=== PATIENT | male | born 1990 | race Hispanic/Latino ===

== ENCOUNTER 2017-06-06 17:15 | Emergency (ER) | payer MEDICAID, OTHER ==
[2017-06-06 17:58] VITALS: BP 104/64; PULSE 95; RESP 16; TEMP 99.2; O2SAT 98
--- NOTE | 2017-06-06 21:20 | ED PDOC ---
HPI: General Adult Time Seen by Provider: 06/06/17 18:46 Chief Complaint (Nursing): Flu-like Symptoms Chief Complaint (Provider): Flu-Like Symptoms History Per: Patient History/Exam Limitations: no limitations Onset/Duration Of Symptoms: Hrs (since this morning) Current Symptoms Are (Timing): Still Present Additional Complaint(s): 27 year old male with no medical history presents to ED with complaints of flu- like symptoms since this morning: (+) sore throat, tactile fever, and body aches. (-) cough, travel, rash, otalgia, vomiting, diarrhea, chest pain, or abdominal pain. (+) sick contact with niece. Patient notes he took 500mg Advil x5 hours [employer] [employer]. PCP: Does not remember Past Medical History Reviewed: Historical Data, Nursing Documentation, Vital Signs Vital Signs: Last Vital Signs Temp 99.2 F 06/06/17 17:53 Pulse 95 H 06/06/17 17:53 Resp 16 06/06/17 17:53 BP 104/64 06/06/17 17:53 Pulse Ox 98 06/06/17 21:30 - Medical History PMH: No Chronic Diseases, Sexually Transmitted Disease (Herpes Simplex 2) - Surgical History Surgical History: No Surg Hx - Family History Family History: States: Unknown Family Hx - Living Arrangements Living Arrangements: With Family - Social History Current smoker - smoking cessation education provided: Yes (6 cigarettes a day) Ex-Smoker (has not smoked in the last 12 months): No Drugs: Denies - Home Medications Home Medications: Ambulatory Orders Medication Instructions Recorded Sulfamethoxazole/Trimethoprim 1 tab PO BID #14 tab 11/13/16 [Bactrim DS 800 mg-160 mg] Amoxicillin 875 mg PO BID #14 tablet 06/06/17 Ibuprofen [Motrin Tab] 600 mg PO QID PRN #20 tab 06/06/17 - Allergies Allergies/Adverse Reactions: Allergies Allergy/AdvReac Type Severity Reaction Status Date / Time No Known Allergies Allergy Verified 06/06/17 17:53 Review of Systems ROS Statement: Except As Marked, All Systems Reviewed And Found Negative Constitutional: Positive for: Fever (tactile), Other ((+) body aches) ENT: Positive for: Throat Pain Cardiovascular: Negative for: Chest Pain Respiratory: Negative for: Cough Gastrointestinal: Negative for: Vomiting, Abdominal Pain, Diarrhea Physical Exam - Reviewed Nursing Documentation Reviewed: Yes Vital Signs Reviewed: Yes - Physical Exam Appears: Positive for: Well, Non-toxic, No Acute Distress Head Exam: Positive for: NORMOCEPHALIC Skin: Positive for: Normal Color, Warm, Dry Eye Exam: Positive for: Normal appearance. Negative for: Conjunctival injection ENT: Positive for: TM Is/Are (nonbulging, nonerythematous), Pharyngeal Erythema , Tonsillar Exudate (bilateral exudates), Tonsillar Swelling (2+ tonsillar hypertrophy), Other (uvula midline). Negative for: Normal ENT Inspection, Nasal Congestion Neck: Positive for: Painless ROM, Supple Cardiovascular/Chest: Positive for: Regular Rate, Rhythm. Negative for: Bradycardia Respiratory: Positive for: Normal Breath Sounds. Negative for: Decreased Breath Sounds, Accessory Muscle Use, Respiratory Distress Gastrointestinal/Abdominal: Positive for: Soft. Negative for: Tenderness, Organomegaly, Mass, Distended Neurologic/Psych: Positive for: Alert, Oriented, Gait (steady). Negative for: Motor/Sensory Deficits - ECG O2 Sat by Pulse Oximetry: 98 (RA) Pulse Ox Interpretation: Normal Medical Decision Making Medical Decision Makin Initial impression: pharyngitis Initial plan: * Amoxicillin 500mg PO * Toradol 30mg IM * Rapid strep 1946 * Throat culture 2104 Patient is feeling much better upon re-evaluation and is stable for discharge home. Patient will go home with prescriptions for Ibuprofen and Amoxicillin. Follow up with PMD/clinic in 1-2 days and return to ED with any new or worsening symptoms. Scribe Attestation: Documented by Phyllis Sweeney, acting as a scribe for Karina Martinez PA-C. Provider Scribe Attestation: All medical record entries made by the Scribe were at my direction and personally dictated by me. I have reviewed the chart and agree that the record accurately reflects my personal performance of the history, physical exam, medical decision making, and the department course for this patient. I have also personally directed, reviewed, and agree with the discharge instructions and disposition. Disposition - Clinical Impression Clinical Impression: Tonsillitis with exudate, Throat pain in adult - Disposition Disposition: Routine/Home Disposition Time: 21:05 Condition: STABLE Prescriptions: Amoxicillin 875 mg PO BID #14 tablet Ibuprofen [Motrin Tab] 600 mg PO QID PRN #20 tab PRN Reason: pain, fever Instructions: Tonsillitis (ED) Forms: [facility] (Zimbabwean) Print Language: MONGOLIAN
== END 2017-06-06 21:15 | disposition home or self-care (01) ==
LOC: H.ER 17:15
DX: J03.90 Acute tonsillitis, unspecified (principal)
CPT/HCPCS: 87070; 87430; 96372; 99282; J1885

== ENCOUNTER 2018-03-04 11:51 | Emergency (ER) | payer OTHER ==
[2018-03-04 12:09] VITALS: TEMP 98.2; O2SAT 100
--- NOTE | 2018-03-04 12:42 | ED PDOC ---
HPI: Skin/Bite Injury Additional Complaint(s): Pt seen and examined at bedside with attending. 27M no PMH p/w a few days of "red/swollen painful area" anterior LEFT ear. Patient denies any ear pain, fevers, chills, changes in hearing, drainage, difficulty chewing. Pt reports it has already decreased in size and pain. <Keyla Hart - Last Filed: 03/04/18 12:39> <Ruben De Souza III - Last Filed: 03/07/18 10:25> Chief Complaint (Nursing): Abnormal Skin Integrity Supervising Attending Note - Attestation: I have personally seen and examined this patient.: Yes I have fully participated in the care of the patient.: Yes I have reviewed all pertinent clinical information, including history, physical exam and plan: Yes - Notes: Notes:: pt seen and examined w resident. agree w findings. cover w clinda topical for folliculitis. rec Hibiclens shampoo/soap also. <Ruben De Souza III - Last Filed: 03/07/18 10:25> Past Medical History Vital Signs: Last Vital Signs Temp 36.8 C 03/04/18 12:06 Pulse 90 03/04/18 12:06 Resp 18 03/04/18 12:06 BP 107/67 03/04/18 12:06 Pulse Ox 100 03/04/18 12:06 - Medical History PMH: Sexually Transmitted Disease (Herpes Simplex 2) - Family History Family History: States: Unknown Family Hx - Immunization History Hx Tetanus Toxoid Vaccination: No Hx Influenza Vaccination: No Hx Pneumococcal Vaccination: No <Keyla Hart - Last Filed: 03/04/18 12:39> Vital Signs: Last Vital Signs Temp 98.2 F 03/04/18 12:06 Pulse 90 03/04/18 12:06 Resp 18 03/04/18 12:06 BP 107/67 03/04/18 12:06 Pulse Ox 100 03/04/18 12:47 <Ruben De Souza III - Last Filed: 03/07/18 10:25> - Home Medications Home Medications: Ambulatory Orders Medication Instructions Recorded Sulfamethoxazole/Trimethoprim 1 tab PO BID #14 tab 11/13/16 [Bactrim DS 800 mg-160 mg] RX: Amoxicillin 875 mg PO BID #14 tablet 06/06/17 RX: Ibuprofen [Motrin Tab] 600 mg PO QID PRN #20 tab 06/06/17 RX: Clindamycin Phosphate 1 apful TP BID #1 lot 03/04/18 - Allergies Allergies/Adverse Reactions: Allergies Allergy/AdvReac Type Severity Reaction Status Date / Time No Known Allergies Allergy Verified 03/04/18 12:05 Review of Systems ROS Statement: Except As Marked, All Systems Reviewed And Found Negative ENT: Positive for: Ear Pain (anteroinferior to tragus, not painful at present, denies drainage) <Keyla Hart - Last Filed: 03/04/18 12:39> Physical Exam - Reviewed Vital Signs Reviewed: Yes - Physical Exam Appears: Positive for: Well, Non-toxic, No Acute Distress Head Exam: Positive for: ATRAUMATIC Skin: Positive for: Normal Color (Patient has underlying acne ), Warm, Dry Eye Exam: Positive for: Normal appearance, EOMI. Negative for: Conjunctival injection ENT: Positive for: Other (Patient has 0.25-0.5mm area of erythema without i nduration/drainage anterior LEFT ear. Negative LEFT tragus/pinnae pain.) Neck: Positive for: Supple Cardiovascular/Chest: Positive for: Regular Rate, Rhythm Respiratory: Positive for: Normal Breath Sounds. Negative for: Crackles, Rales, Rhonchi, Wheezing Gastrointestinal/Abdominal: Positive for: Normal Exam. Negative for: Tenderness Lymphatic: Negative for: Adenopathy <Keyla Hart - Last Filed: 03/04/18 12:39> - ECG O2 Sat by Pulse Oximetry: 100 <Keyla Hart - Last Filed: 03/04/18 12:39> Medical Decision Making Medical Decision Making: Suspect comedone/folliculitis. - Home care with warm, moist compresses. <Keyla Hart - Last Filed: 03/04/18 12:39> Disposition - Patient ED Disposition Is Patient to be Admitted: No Counseled Patient/Family Regarding: Diagnosis - Disposition Disposition: Routine/Home <Keyla Hart - Last Filed: 03/04/18 12:39> <Ruben De Souza III - Last Filed: 03/07/18 10:25> - Clinical Impression Clinical Impression: Folliculitis - Disposition Additional Instructions: Followup with PMD and or spanish professor for further testing. Prescriptions: RX: Clindamycin Phosphate 1 apful TP BID #1 lot Forms: [facility] [employer] [facility] (French), [facility] ED School/Work Excuse
[2018-03-04 13:08] VITALS: BP 135/74; PULSE 68; RESP 16
== END 2018-03-04 13:10 | disposition home or self-care (01) ==
LOC: H.ER 11:51
DX: L73.9 Follicular disorder, unspecified (principal)

== ENCOUNTER 2018-06-24 13:03 | Emergency (ER) | payer OTHER ==
[2018-06-24 13:15] VITALS: BP 110/72; PULSE 60; RESP 18; TEMP 97.8; O2SAT 99
--- NOTE | 2018-06-24 13:45 | ED PDOC ---
HPI: Skin/Bite Injury Time Seen by Provider: 06/24/18 13:35 Chief Complaint (Nursing): ENT Problem Chief Complaint (Provider): redness below right ear History Per: Patient History/Exam Limitations: no limitations Additional Complaint(s): 28 y/o M with no significant PMH who presents with redness below Right ear x 3 days. Pt states that he had a red pimple that began below/behind his R ear 3 days ago and he has been "messing with it". He feels like it looks smaller today than yesterday. Denies drainage, fever, chills, night sweats, ear pain. He has not used anything on it and states that it is not that painful. Past Medical History Reviewed: Historical Data, Nursing Documentation, Vital Signs Vital Signs: Last Vital Signs Temp 97.8 F 06/24/18 13:13 Pulse 60 06/24/18 13:13 Resp 18 06/24/18 13:13 BP 110/72 06/24/18 13:13 Pulse Ox 99 06/24/18 13:13 - Medical History PMH: Sexually Transmitted Disease (Herpes Simplex 2) - Family History Family History: States: Unknown Family Hx - Immunization History Hx Tetanus Toxoid Vaccination: No Hx Influenza Vaccination: No Hx Pneumococcal Vaccination: No - Home Medications Home Medications: Ambulatory Orders Medication Instructions Recorded Sulfamethoxazole/Trimethoprim 1 tab PO BID #14 tab 11/13/16 [Bactrim DS 800 mg-160 mg] Amoxicillin 875 mg PO BID #14 tablet 06/06/17 Ibuprofen [Motrin Tab] 600 mg PO QID PRN #20 tab 06/06/17 Clindamycin Phosphate 1 apful TP BID #1 lot 03/04/18 - Allergies Allergies/Adverse Reactions: Allergies Allergy/AdvReac Type Severity Reaction Status Date / Time No Known Allergies Allergy Verified 03/04/18 12:05 Physical Exam - Reviewed Nursing Documentation Reviewed: Yes Vital Signs Reviewed: Yes - Physical Exam Appears: Positive for: Well Head Exam: Positive for: ATRAUMATIC Skin: Positive for: Rash (erythematous papule just below Right tragus, no pustule/drainage/fluctuance or induration. ) ENT: Positive for: Normal ENT Inspection Neck: Positive for: Painless ROM Neurologic/Psych: Positive for: Alert, Oriented - ECG O2 Sat by Pulse Oximetry: 99 Medical Decision Making Medical Decision Making: Pt advised to use Bacitracin to Right papule and to avoid scratching or touching it as it may become infected. Return instructions provided. Disposition - Clinical Impression Clinical Impression: Skin rash - Patient ED Disposition Is Patient to be Admitted: No - Disposition Disposition: Routine/Home Disposition Time: 13:47 Condition: STABLE
== END 2018-06-24 13:52 | disposition home or self-care (01) ==
LOC: H.ER 13:03
DX: H61.899 Other specified disorders of external ear, unspecified ear (principal)

== ENCOUNTER 2018-07-02 09:27 | Emergency (ER) | payer OTHER ==
[2018-07-02 09:41] VITALS: BMI 25.8
[2018-07-02 09:44] VITALS: BP 135/77; PULSE 66; RESP 20; TEMP 98.2; O2SAT 98
--- NOTE | 2018-07-02 11:05 | ED PDOC ---
HPI: Back Time Seen by Provider: 07/02/18 10:32 Chief Complaint (Nursing): Back Pain History Per: Patient History/Exam Limitations: no limitations Onset/Duration Of Symptoms: Hrs Current Symptoms Are (Timing): Still Present Quality Of Discomfort: Aching Severity: Mild Exacerbating Factor(s): Turning, Movement Additional Complaint(s): Pt. is a healthy 28 y/o Male who reports he was going down the stairs last night and when he slipped on step he twisted his back to grab the railing. He did not fall, denies head injury or any other injury. Pt. reports left lower back pain since twisting his back last night; denies any numbness, incontinence. Past Medical History Reviewed: Historical Data, Nursing Documentation, Vital Signs Vital Signs: Last Vital Signs Temp 98.2 F 07/02/18 09:42 Pulse 66 07/02/18 09:42 Resp 20 07/02/18 09:42 BP 135/77 07/02/18 09:42 Pulse Ox 98 07/02/18 09:42 - Medical History PMH: No Chronic Diseases, Sexually Transmitted Disease (Herpes Simplex 2) Denies: Chronic Kidney Disease - Surgical History Surgical History: No Surg Hx - Family History Family History: States: Unknown Family Hx - Immunization History Hx Tetanus Toxoid Vaccination: No Hx Influenza Vaccination: No Hx Pneumococcal Vaccination: No - Home Medications Home Medications: Ambulatory Orders Medication Instructions Recorded Sulfamethoxazole/Trimethoprim 1 tab PO BID #14 tab 11/13/16 [Bactrim DS 800 mg-160 mg] Amoxicillin 875 mg PO BID #14 tablet 06/06/17 Ibuprofen [Motrin Tab] 600 mg PO QID PRN #20 tab 06/06/17 Clindamycin Phosphate 1 apful TP BID #1 lot 03/04/18 Bacitracin OINT 1 applic TP BID #1 tube 06/24/18 Cyclobenzaprine [Cyclobenzaprine 10 mg PO Q8 5 Days #15 tab 07/02/18 HCl] Ibuprofen [Motrin Tab] 600 mg PO Q8 #15 tab 07/02/18 - Allergies Allergies/Adverse Reactions: Allergies Allergy/AdvReac Type Severity Reaction Status Date / Time No Known Allergies Allergy Verified 03/04/18 12:05 Review of Systems Constitutional: Negative for: Fever, Chills, Weakness Respiratory: Negative for: Shortness of Breath Gastrointestinal: Negative for: Abdominal Pain Genitourinary Male: Negative for: Incontinence Neurological: Negative for: Weakness, Numbness Physical Exam - Physical Exam Appears: Positive for: Well, Non-toxic Head Exam: Positive for: ATRAUMATIC Skin: Positive for: Normal Color Eye Exam: Positive for: Normal appearance Cardiovascular/Chest: Positive for: Regular Rate, Rhythm Respiratory: Positive for: Normal Breath Sounds Back: Positive for: Normal Inspection, Muscle Spasm (left paraspinal muscular spasm). Negative for: Vertebral Tenderness Extremity: Positive for: Normal ROM (Strength 5/5 to bilateral lower extremities) Neurological/Psych: Negative for: Motor/Sensory Deficits (to bilateral lower extremities) - ECG O2 Sat by Pulse Oximetry: 98 Medical Decision Making Medical Decision Making: Motrin po and flexeril po given. Pt. ambulating with steady gait. Back pain appears musculoskeletal, no indication for imaging at this time. Pt. well appearing, ambulating with steady gait, neuro intact. Disposition - Clinical Impression Clinical Impression: Back strain - Patient ED Disposition Is Patient to be Admitted: No - Disposition Referrals: Wero Poole III, MD [Staff Provider] - Disposition: Routine/Home Disposition Time: 11:09 Condition: STABLE Prescriptions: Cyclobenzaprine [Cyclobenzaprine HCl] 10 mg PO Q8 5 Days #15 tab Ibuprofen [Motrin Tab] 600 mg PO Q8 #15 tab Instructions: Low Back Pain (DC) Forms: [facility] (Ukrainian), [facility] ED School/Work Excuse
== END 2018-07-02 12:18 | disposition home or self-care (01) ==
LOC: H.ER 09:27
DX: S39.012A Strain of muscle, fascia and tendon of lower back, initial encounter (principal); W19.XXXA Unspecified fall, initial encounter; Y92.89 Other specified places as the place of occurrence of the external cause

== ENCOUNTER 2018-07-19 13:05 | Emergency (ER) | payer OTHER ==
[2018-07-19 13:06] VITALS: BMI 25.8
[2018-07-19 14:06] VITALS: BP 124/71; PULSE 72; RESP 18; TEMP 98.5; O2SAT 99
--- NOTE | 2018-07-19 16:52 | ED PDOC ---
HPI: CCC, URI, Sore Throat Time Seen by Provider: 07/19/18 14:30 Chief Complaint (Nursing): ENT Problem Chief Complaint (Provider): ENT Problem History Per: Patient History/Exam Limitations: no limitations (ENT Problem) Current Symptoms Are (Timing): Still Present Additional Complaint(s): 28 y/o male with no significant PMHx presents to the ED for evaluation of a non- productive cough associated with nasal congestion for the past two days. Patient additionally notes of having a video conference call about a previous visit here and was told to come back to the ER for further evaluation. At that visit, patient presented for evaluation of red bumps under the right ear. Patient notes at that time bumps appeared swollen thus prompting visits. Patient reports of being given ointment of which he did not use. Patient states bumps have been improving despite not using ointment. Of note, patient reports of having bad acne further stating of having similar symptoms in the past. Otherwise, patient denies fever, chills, shortness of breath, chest pain, recent travel and sick contacts. PMD: no provider Past Medical History Reviewed: Historical Data, Nursing Documentation, Vital Signs Vital Signs: Last Vital Signs Temp 98.5 F 07/19/18 14:02 Pulse 72 07/19/18 14:02 Resp 18 07/19/18 14:02 BP 124/71 07/19/18 14:02 Pulse Ox 99 07/19/18 14:02 - Medical History PMH: Sexually Transmitted Disease (Herpes Simplex 2) Denies: Chronic Kidney Disease - Surgical History Surgical History: No Surg Hx - Family History Family History: States: Unknown Family Hx - Social History Current smoker - smoking cessation education provided: Yes Alcohol: Occasional Drugs: Other (marijuana) - Immunization History Hx Tetanus Toxoid Vaccination: No Hx Influenza Vaccination: No Hx Pneumococcal Vaccination: No - Home Medications Home Medications: Ambulatory Orders Medication Instructions Recorded Sulfamethoxazole/Trimethoprim 1 tab PO BID #14 tab 11/13/16 [Bactrim DS 800 mg-160 mg] Amoxicillin 875 mg PO BID #14 tablet 06/06/17 Ibuprofen [Motrin Tab] 600 mg PO QID PRN #20 tab 06/06/17 Clindamycin Phosphate 1 apful TP BID #1 lot 03/04/18 Bacitracin OINT 1 applic TP BID #1 tube 06/24/18 Cyclobenzaprine [Cyclobenzaprine 10 mg PO Q8 5 Days #15 tab 07/02/18 HCl] Ibuprofen [Motrin Tab] 600 mg PO Q8 #15 tab 07/02/18 guaiFENesin/Dextromethorphan 20 ml PO Q6 PRN #100 ml 07/19/18 [guaiFENesin-DM] Albuterol HFA [Ventolin HFA 90 1 - 2 puff IH Q4 PRN #1 inhaler 07/22/18 mcg/actuation (8 g)] Azithromycin [Zithromax] 250 mg PO DAILY #6 tab 07/22/18 Prednisone 50 mg PO DAILY #4 tab 07/22/18 - Allergies Allergies/Adverse Reactions: Allergies Allergy/AdvReac Type Severity Reaction Status Date / Time No Known Allergies Allergy Verified 07/22/18 09:28 Review of Systems ROS Statement: Except As Marked, All Systems Reviewed And Found Negative Constitutional: Negative for: Fever, Chills ENT: Positive for: Nose Congestion Cardiovascular: Negative for: Chest Pain Respiratory: Positive for: Cough. Negative for: Shortness of Breath Skin: Positive for: Other (bumps under the right ear) Physical Exam - Reviewed Nursing Documentation Reviewed: Yes Vital Signs Reviewed: Yes - Physical Exam Comments: GENERAL APPEARANCE: Patient is awake, alert, oriented x 3, in no acute distress. SKIN: Warm, dry; (-) cyanosis. FACIAL: (+) two erythematous papules consistent with acne noted distal to the right ear. (-) drainage, (-) warm to touch, (-) postules, (-) signs of infection EYES: (-) conjunctival pallor. ENMT: Mucous membranes moist. Airway patent: (-) stridor. Pharynx: (-) swelling, (-) erythema, (-) exudate. NECK: (-) tenderness, (-) stiffness, (-) lymphadenopathy. CHEST AND RESPIRATORY: Dry audible cough noted. (-) rhonchi, (-) rales, (-) wheezes, (-) pleural rub; breath sounds equal bilaterally. HEART AND CARDIOVASCULAR: (-) irregularity; (-) murmur, (-) gallop. ABDOMEN AND GI: Soft; (-) tenderness. EXTREMITIES: (-) deformity; (-) edema. NEURO AND PSYCH: Mental status as above. Cranial nerves grossly intact; strength symmetric. - ECG O2 Sat by Pulse Oximetry: 99 (RA) Pulse Ox Interpretation: Normal Medical Decision Making Medical Decision Making: Time: 1402 Impression: URI Plan: -- Based on unremarkable physical examination, patient is stable for discharge home with a prescription for cough medication. Patient additionally instructed to follow up with Clinic for further management. Discussed diagnosis, treatment, return precautions and f/u with pt who is understanding, in agreement and stable for dc Scribe Attestation: Documented by Valeriano Hernandez, acting as a scribe Evelia Graves PA-C. Provider Scribe Attestation: All medical record entries made by the Scribe were at my direction and persona lly dictated by me. I have reviewed the chart and agree that the record accurately reflects my personal performance of the history, physical exam, medical decision making, and the department course for this patient. I have also personally directed, reviewed, and agree with the discharge instructions and disposition. Disposition - Clinical Impression Clinical Impression: Acne, URI (upper respiratory infection) - Patient ED Disposition Is Patient to be Admitted: No Counseled Patient/Family Regarding: Studies Performed, Diagnosis, Need For Followup, Rx Given - Disposition Referrals: [facility] [Outside] Disposition: Routine/Home Disposition Time: 15:37 Condition: STABLE Additional Instructions: Return to ED for new or worsening symptoms, fever >100.4, difficulty breathing, chest pain, unable to swallow, increase redness or swelling to ear area. Follow up with a primary care doctor or clinic in 3-5 days. Take medications as prescribed to help cough. Use ointment as previously prescribed. Prescriptions: guaiFENesin/Dextromethorphan [guaiFENesin-DM] 20 ml PO Q6 PRN #100 ml PRN Reason: Cough Instructions: Acne, Viral Upper Respiratory Infection, Adult (DC), Acne (ED) Forms: [facility] ED School/Work Excuse Print Language: HUNGARIAN - POA Present On Arrival: None
== END 2018-07-19 15:39 | disposition home or self-care (01) ==
LOC: H.ER 13:05
DX: J06.9 Acute upper respiratory infection, unspecified (principal); L70.9 Acne, unspecified

== ENCOUNTER 2018-07-22 09:03 | Emergency (ER) | payer OTHER ==
[2018-07-22 09:08] VITALS: BMI 27.2
[2018-07-22 09:10] VITALS: O2SAT 98
--- NOTE | 2018-07-22 10:23 | RAD ---
Date of service: 07/22/2018 HISTORY: cough, hemoptysis COMPARISON: Chest radiographs 01/12/2008. TECHNIQUE: Chest PA and lateral views FINDINGS: LUNGS: No active pulmonary disease. PLEURA: No significant pleural effusion identified. No pneumothorax apparent. CARDIOVASCULAR: No aortic atherosclerotic calcification present. Normal cardiac size. No pulmonary vascular congestion. OSSEOUS STRUCTURES: No significant abnormalities. VISUALIZED UPPER ABDOMEN: Normal. OTHER FINDINGS: None. IMPRESSION: No interval acute cardiopulmonary disease appreciated.
--- NOTE | 2018-07-22 10:26 | ED PDOC ---
HPI: CCC, URI, Sore Throat Time Seen by Provider: 07/22/18 09:16 Chief Complaint (Nursing): Cough, Cold, Congestion Chief Complaint (Provider): I coughed up a little blood History Per: Patient Current Symptoms Are (Timing): Gone Now Location Of Pain: Throat. denies: Diffuse Myalgias, Headache Sick Contacts (Context): None Associated Symptoms: Sore Throat, Cough, Sputum. denies: Sinus Drainage, Nasal Congestion, Nausea, Vomiting, Diarrhea Severity: Moderate Additional Complaint(s): 28yo male, smoker, presents c/o cough for 2-3 days now with episode of small hemoptysis this morning, "huong" sized, no SOB, no bruising, no weight loss, no edema, no other bleeding noted per patient. Past Medical History Vital Signs: Last Vital Signs Temp 98.3 F 07/22/18 09:08 Pulse 66 07/22/18 09:08 Resp 17 07/22/18 09:08 BP 115/66 07/22/18 09:08 Pulse Ox 98 07/22/18 09:08 - Medical History PMH: Sexually Transmitted Disease (Herpes Simplex 2) Denies: Chronic Kidney Disease - Family History Family History: States: Unknown Family Hx - Immunization History Hx Tetanus Toxoid Vaccination: No Hx Influenza Vaccination: No Hx Pneumococcal Vaccination: No - Home Medications Home Medications: Ambulatory Orders Medication Instructions Recorded Sulfamethoxazole/Trimethoprim 1 tab PO BID #14 tab 11/13/16 [Bactrim DS 800 mg-160 mg] Amoxicillin 875 mg PO BID #14 tablet 06/06/17 Ibuprofen [Motrin Tab] 600 mg PO QID PRN #20 tab 06/06/17 Clindamycin Phosphate 1 apful TP BID #1 lot 03/04/18 Bacitracin OINT 1 applic TP BID #1 tube 06/24/18 Cyclobenzaprine [Cyclobenzaprine 10 mg PO Q8 5 Days #15 tab 07/02/18 HCl] Ibuprofen [Motrin Tab] 600 mg PO Q8 #15 tab 07/02/18 guaiFENesin/Dextromethorphan 20 ml PO Q6 PRN #100 ml 07/19/18 [guaiFENesin-DM] Albuterol HFA [Ventolin HFA 90 1 - 2 puff IH Q4 PRN #1 inhaler 07/22/18 mcg/actuation (8 g)] Azithromycin [Zithromax] 250 mg PO DAILY #6 tab 07/22/18 Prednisone 50 mg PO DAILY #4 tab 07/22/18 - Allergies Allergies/Adverse Reactions: Allergies Allergy/AdvReac Type Severity Reaction Status Date / Time No Known Allergies Allergy Verified 07/22/18 09:28 - ECG O2 Sat by Pulse Oximetry: 98 Medical Decision Making Medical Decision Making: patient active smoker without TB risk factors. Explained vital importance of followup and if hemoptysis continues will need CT chest without fail. He is otherwise comfortable in ED with normal respiratory effort, no active cough here, and CXR results were discussed, but again noted that it does not replace need for outpatient CT chest if symptoms persist. Disposition - Clinical Impression Clinical Impression: Bronchitis, Hemoptysis - Patient ED Disposition Is Patient to be Admitted: No Counseled Patient/Family Regarding: Studies Performed, Diagnosis, Need For Followup, Rx Given - Disposition Referrals: Juan Douglas MD [Staff Provider] - Disposition: Routine/Home Disposition Time: 10:45 Condition: STABLE Additional Instructions: Return to ER for any worse or new symptoms. If coughing up blood persists, you will require a CT of the chest. Take medications as directed. Prescriptions: Albuterol HFA [Ventolin HFA 90 mcg/actuation (8 g)] 1 - 2 puff IH Q4 PRN #1 inhaler PRN Reason: Shortness Of Breath Azithromycin [Zithromax] 250 mg PO DAILY #6 tab Prednisone 50 mg PO DAILY #4 tab Instructions: Acute Bronchitis, Coughing up Blood, Quitting Smoking Forms: [employer] ([place])
[2018-07-22 14:40] VITALS: BP 125/78; PULSE 74; RESP 18; TEMP 98
== END 2018-07-22 10:58 | disposition home or self-care (01) ==
LOC: H.ER 09:03
DX: J40 Bronchitis, not specified as acute or chronic (principal); R04.2 Hemoptysis